=== PATIENT | male | born 1965 | race Caucasian/White ===

== ENCOUNTER 2022-10-01 03:30 | Inpatient (IN) | payer MEDICAID ==
[~2022-10-01] VITALS: Ht 172.7 cm; Wt 71.2 kg
[2022-10-01 03:45] VITALS: BP 164/87
--- NOTE | 2022-10-01 03:45 | NUR ---
CLASS A LINEMANINTERIOR DESIGN FACULTY MEMBER NOTES - PATIENT TRANSFERRED BY [address] [facility] FROM [facility] AT 0338 VIA GURNEY. PATIENT IS AMBULATORY AND INDEPENDENT WITH ADLS. PATIENT IS A/O X2, TO NAME AND TIME, BUT DOES NOT RESPOND TO ANY QUESTION WHEN I WAS INTERVIEWING HIM. HE IS COVERED WITH A BLANKET FROM HEAD TO TOE. PMI TAKEN FROM PREVIOUS MEDICAL RECORD. BREATHING IS EVEN AND NON-LABORED ON ROOM AIR. NOT IN APPARENT DISTRESS. NO C/O PAIN OR DISCOMFORT AT THIS TIME. HAS LEFT HAND IV ACCESS #22G AND SALINE LOCKED. NO S/S OF INFILTRATION NOTED. VS TAKEN, BS 286. ALL BELONGINGS ACCOUNTED FOR. ORIENTED PATIENT TO UNIT AND STAFF. REFUSED TELE MONITOR AT THIS TIME. SAFETY PRECAUTIONS IN PLACE: BED LOCKED AND IN LOW POSITION, SIDE RAILS UP X2, CALL LIGHT WITHIN REACH. WILL CONTINUE PLAN OF CARE.
[2022-10-01 04:00] VITALS: BP 164/87
[2022-10-01] MEDS ORDERED: NITR1OIN2 TD (04:18)
[2022-10-01] MEDS ORDERED: LABE5VIA4 IV (04:18)
[2022-10-01] MEDS ORDERED: GLUC1KIT IJ (04:18)
[2022-10-01] MEDS ORDERED: LORA2VIA6 IJ (04:18)
[2022-10-01] MEDS ORDERED: INSU100V28 (04:18)
[2022-10-01] MEDS ORDERED: HYDR20VI4 IJ (04:18)
[2022-10-01] MEDS ORDERED: FURO100P5 IVP (04:18)
[2022-10-01] MEDS ORDERED: MAG HYDROX/AL HYDROX/SIMETH 30 ML UDC PO PRN (04:30)
[2022-10-01] MEDS ORDERED: ZOLPIDEM TARTRATE 5 MG TABLET PO PRN (04:30)
[2022-10-01] MEDS ORDERED: MAGNESIUM HYDROXIDE 30 ML UDC PO PRN (04:30)
[2022-10-01] MEDS ORDERED: LORAZEPAM INJ 2 MG/ML VIAL IV PRN (04:30)
[2022-10-01] MEDS ORDERED: Z GUARD REMEDY 4 OZ OINT TP PRN (04:30)
[2022-10-01] MEDS ORDERED: DEXTROSE 50%-WATER 50 ML DISP.SYRIN IV PRN (04:30)
[2022-10-01] MEDS ORDERED: hydrALAZINE HCL IV 20 MG VIAL IV PRN (04:30)
[2022-10-01] MEDS ORDERED: ONDANSETRON HCL/PF 4 MG/2 ML VIAL IVP PRN (04:30)
[2022-10-01] MEDS: BLOOD SUGAR DIAGNOSTIC 1 EACH STRIP IN SCH ×4 (06:39→22:13)
[2022-10-01] MEDS: INSULIN REGULAR, HUMAN 100 UNIT/ML 3 ML VIAL SQ PRN ×4 (06:40→22:27)
--- NOTE | 2022-10-01 06:46 | NUR ---
SENIOR PRODUCER CLOSING NOTES - PATIENT SLEEPING IN BED, EASY TO AROUSE. ABLE TO VERBALIZE NEEDS, EASILY AGITATED. NO RESPIRATORY OR CARDIAC DISTRESS NOTED. AFEBRILE. NO S/S OF PAIN OR DISCOMFORT. LEFT HAND IV ACCESS INTACT, PATENT AND FLUSHING. ALL NEEDS ATTENDED AND ANTICIPATED. STILL REFUSING TELE MONITORING. SAFETY PRECAUTIONS MAINTAINED. WILL ENDORSE TO NEXT SHIFT FOR ROB.
--- NOTE | 2022-10-01 08:00 | NUR ---
PATIENT REFUSED TO TAKE VITAL SIGNS AND MRSA SWAB TEST
[2022-10-01] MEDS: THIAMINE HCL 100 MG TABLET PO SCH (08:46)
[2022-10-01] MEDS: FOLIC ACID 1 MG TABLET PO SCH (08:46)
[2022-10-01] MEDS: PANTOPRAZOLE 40 MG VIAL IV SCH (08:46)
[2022-10-01] MEDS ORDERED: INSU100I40 SQ (09:28)
[2022-10-01] MEDS ORDERED: FURO40TA5 PO (09:28)
[2022-10-01] MEDS ORDERED: CLON0.3T PO (09:28)
[2022-10-01] MEDS ORDERED: FOLI0.4T6 PO (09:28)
[2022-10-01] MEDS ORDERED: HUM10VIA3 SQ (09:28)
[2022-10-01] MEDS ORDERED: LISI10TA29 PO (09:28)
[2022-10-01] MEDS ORDERED: CARV25TA2 PO (09:28)
[2022-10-01] MEDS ORDERED: IPRA3AMP23 NEB (09:28)
[2022-10-01] MEDS ORDERED: HYDR-3972 PO (09:28)
[2022-10-01] MEDS ORDERED: SPIR25TA6 PO (09:28)
[2022-10-01] MEDS ORDERED: AMLO-213 PO (09:28)
[2022-10-01] MEDS ORDERED: HYDR-4076 PO (09:28)
[2022-10-01 10:03] LABS: BASOPHILS # (AUTO) 0.1 K/uL (0.0-0.2); BASOPHILS % (AUTO) 1.5 % (0.0-2.0); EOSINOPHILS % (AUTO) 4.3 % (0.0-6.0); HEMATOCRIT 32 % (39-51); HEMOGLOBIN 10.1 g/dL (13.5-17.5); LYMPHOCYTES # (AUTO) 1.3 K/uL (0.8-4.8); LYMPHOCYTES % (AUTO) 18.9 % (20.0-44.0); MEAN CORPUSCULAR HGB CONC 32 g/dl (31.0-36.0); MEAN CORPUSCULAR VOLUME 88 fL (80-96); MONOCYTES # (AUTO) 0.8 K/uL (0.1-1.30); MONOCYTES % (AUTO) 12.2 % (2.0-12.0); NEUTROPHILS # (AUTO) 4.3 K/uL (1.8-8.9); NEUTROPHILS % (AUTO) 63.1 % (43.0-81.0); PLATELET COUNT (AUTO) 210 K/uL (150-450); RED BLOOD CELL COUNT(AUTO) 3.59 MIL/uL (4.5-6.0); WHITE BLOOD COUNT (AUTO) 6.7 K/uL (4.3-11.0)
[2022-10-01 10:48] LABS: CALCIUM, SERUM 8.6 mg/dL (8.5-10.1); CARBON DIOXIDE 25 mmol/L (21-32); CHLORIDE 106 mmol/L (98-107); CREATININE 4.2 mg/dL (0.6-1.3); GLUCOSE 237 mg/dL (74-106); SODIUM SERUM 140 mmol/L (136-145); UREA NITROGEN, BLOOD 37 mg/dL (7-18)
[2022-10-01 10:50] LABS: POTASSIUM 2.7 mmol/L (3.5-5.1)
--- NOTE | 2022-10-01 10:54 | NUR ---
REPORT TO DR GALLARDO RE: K-2.7, ORDERED PO POTASSIUM KDUR [id number] .AND ITS GIVEN TO THE PATIENT.
[2022-10-01] MEDS ORDERED: POTASSIUM CHLORIDE 20 MEQ TAB.PRT.SR PO ONE (11:00)
[2022-10-01 11:11] LABS: ALANINE AMINOTRANSFERASE 7 U/L (12-78); ALBUMIN 2.1 g/dL (3.4-5.0); ALKALINE PHOSPHATASE 132 U/L (46-116); ASPARTATE AMINOTRANSFERASE 22 U/L (15-37); BILIRUBIN,TOTAL 0.4 mg/dL (0.2-1.0); MAGNESIUM 1.9 mg/dL (1.8-2.4); PHOSPHORUS 4.2 mg/dL (2.5-4.9); TOTAL PROTEIN, SERUM 6.7 g/dL (6.4-8.2)
[2022-10-01 11:12] LABS: ALCOHOL, BLOOD < 3 mg/dL (0-0)
[2022-10-01 11:55] LABS: CHOLESTEROL 204 mg/dL (<200); HDL CHOLESTEROL 49 mg/dL (40-60); LDL 126 mg/dL (0-99); THYROID STIMULATING HORMONE 1.428 uIU/mL (0.358-3.74); TRIGLYCERIDES 156 mg/dL (30-150)
--- NOTE | 2022-10-01 12:00 | NUR ---
REFUSED VITAL SIGNS TO BE TAKEN
--- NOTE | 2022-10-01 13:00 | NUR ---
URINE SAMPLE TAKEN FOR URINE SODIUM RANDOM AND OSMOLALITY, INFORMED LABORATORY.
[2022-10-01 15:04] LABS: BILIRUBIN,URINE NEGATIVE (NEGATIVE); COLOR,URINE YELLOW (YELLOW); LEUKOCYTE ESTERASE ,URINE NEGATIVE (NEGATIVE); NITRITE, URINE NEGATIVE (NEGATIVE); PH,URINE 6.5 (5.0-8.0); PROTEIN,URINE 3+ mg/dl (NEGATIVE); UGLUCOSE 2+ mg/dL (NEGATIVE); UROBILINOGEN,URINE 0.2 EU/dL (0.2)
--- NOTE | 2022-10-01 15:47 | NUR ---
REFUSED HIS VITAL SIGNS TO BE TAKEN.
--- NOTE | 2022-10-01 15:48 | NUR ---
SKIN DIVER MICHELLE CAME TO SEE THE PATIENT.
--- NOTE | 2022-10-01 15:56 | NUR ---
"SW Consult: SW consult requested for patient possible homelessness. Patient was brought in due to Renal failure and Hyperglycemia. Patient presents alert and oriented x3 (self,place,situation). Patient appeared to be angry with his situation. Patient was cooperative with this specifications writer while conducting the assessment. He was unable to maintain appropriate eye contact. Patient appeared disheveled and ungroomed. Patient was angry because he lost his cellphone and he was unable to locate his girlfriends number. Patient stated that he lives at a house with his girlfriend but was unable to state the address or location. Patient reported he has no support. SW assessed if he has been homeless or has been dealing with homelessness and he denied stating that he is not homeless. Patient expressed that he has history of mental illness and stated that he has been diagnosed with 7 diagnoses- unable to recall his dx. Patient reported that he is not employed and receives SSI - he did not want to share income. SW assessed for suicidal or homicidal, pt denied. SW assessed any hallucinations visual/auditory, pt denied. SW assessed for substance abuse and drug abuse, pt denied. SW offered pt resources and pt was accepting of shelters and substance abuse referrals. DC PLAN: SW stated that he would want to be discharged to his girlfriends house he was unable to give address. SW gave him longterm resources. He was unable to give girlfriends phone number. Substance Abuse resources provided included: [facility] Substance Abuse Self-Helpline ([facility]) ; [facility]LP [address] [facility]. [place] [phone] ; [facility] [address] [facility] [address] ; [facility] [address] [facility] [place]. [facility] [address] ; [facility] [address] [facility] [address] ; [facility] [address] [facility] [address] ; [facility] [address] [facility] [phone] ; [facility] Substance Abuse Helpline([facility] ; [facility] ; [facility] [place]; [facility] [place]; [facility] [place]; [facility] [place]; [facility]; [facility]; [facility] [place]; [facility], [facility]. [facility]; Alcoholics Anonymous -SFV; Rp-Cqdd-Nzkpwge ; Marijuana Anonymous -[facility]; Narcotics Anonymous www.na.org; Shelters: José Miguel Radha Fregoso Provider: [facility] [place] Address: [address] [place] [address] [place], [address] # of Beds: 47 Population Served: [facility] 6 | [facility] Provider: [facility] Last Address: [facility], [address] # of Beds: 66 Population Served: [facility] MD.Voice [place] Provider: [facility] Serve Address: [address] [facility], [address] # of Beds: 56 Population Served: [facility] [place]ino [place] Provider: SSG/[facility]. [facility] Address: [address] [facility], [address] # of Beds: 49 Population Served: [facility] 8 | [facility] Provider: First to Serve Address: [address] [facility] [place], [address] # of Beds: 37 Population Served: [facility] Hygiene: [facility]: [address] [address] ; [place] [facility] [address] [facility] ; [facility] [address] [place], [place] . Food Resources: [place] [facility] at [facility]- [address]. [place]; Meet Each Need with Dignity ([facility]) [address] [place]; [facility] [address] [facility]; [facility] [address] [facility]. Mental Health resources provided: [facility] [address] [place], [place] [address] ; [facility] [address] [facility] [address], [place], [place] [phone] ; [facility] [address] [place], [place] [phone] ; [facility] [place], [place] [phone] Healthcare Clinics: [facility] [address] [facility], [address] [place]. [place] ; [facility] [address] [facility] [address] [place] [address]; [facility] [place] [address] [facility]. [place] [phone] Counseling--Outpatient [facility] [address] [facility] [address], [address] [place], [place] [phone] (Specializes in in-depth psychotherapy for emotional distress: anxiety, depression, interpersonal conflicts, life transitions, childhood abuse) [facility] [address] [place], [place] [phone] (Assist with solving problem marital difficulties, separation & divorce, aging parents, & grief, chronic & terminal illness) [facility] [address] [place], [place] [phone] (Deal with loss & grief, anxiety, marital difficulties) Homebound/Mental Health Services [address] [facility], [address] [place] [address] (Provide in-home mental services to people who are incapable of leaving their homes) [facility] Senior Service/Resource Center [address] [place] [address] [facility] [address] [place] [address] PSYCHIATRIC OUTPATIENT SERVICES [facility] Partial Hospitalization and Intensive Outpatient Program (Managed Care and [place] Only)[address] [address] [facility] [phone] [facility] Partial Hospitalization and Outpatient [id number] [place], [place] [phone] [facility] Ogn[address] [place], [place] [phone] [facility] Partial Hospitalization and Outpatient [id number] [facility] [place], [phone] "
[2022-10-01 16:01] LABS: BACTERIA,URINE None seen /HPF (None Seen); URINE AMORPHOUS URATE Few /HPF (None Seen); WBC,URINE 0-2 /HPF (0-3)
--- NOTE | 2022-10-01 16:48 | NUR ---
DISCONTINUE IV LINE ON LEFT HAND DUE TO PATIENT WANTED TO LEAVE AGAINST MEDICAL ADVISE, REFUSED TO SIGN AMA FORM, CHARGE NURSE HALINA AWARE.
[2022-10-01 17:32] LABS: CREATININE, URINE 105.8 MG/DL (30.0-125.0)
[2022-10-01] MEDS: ACETAMINOPHEN 325 MG TABLET PO PRN (18:34)
--- NOTE | 2022-10-01 18:57 | NUR ---
PATIENT IS AWAKE IN BED AND RESTING COMFORTABLY, ORIENTEDX3, NO SIGNS OF IN DISTRESS, UNLABORED BREATHING ON ROOM AIR, NO COMPLAINT OF PAIN, SAFETY MEASURES APPLIED, BED IN LOS POSITION LOCKED, SIDE RAILS UPX3, CALL LIGHT WITHIN REACH.
--- NOTE | 2022-10-01 19:36 | NUR ---
MS RN NOTES RECEIVED ON BED SLEEPING,AROUSABLE TO VERBAL STIMULI.HOMELESS,AWAITING SOCIAL SERVICE CONSULT.SALINE LOCK LEFT HAND INTACT AND PATENT.CALL LIGHT IN RERACH,NEEDS ANTICIPATED.
[2022-10-01 20:00] VITALS: BP 150/81
--- NOTE | 2022-10-01 20:00 | NUR ---
MS RN NOTES SALINE LOCK ACCIDENTALLY PULLED OUT.NEW SALINE LOCK INSERTED ON RIGHT HAND #22
--- NOTE | 2022-10-01 20:47 | NUR ---
MS RN NOTES FEELING ANXIOUS,ATIVAN 1MG IV GIVEN SLOWLY VIA IV PUSH,NS FLUSH DONE.WILL MONITOR FOR OVER SEDATION.FALL PRECAUTION OBSERVED
--- NOTE | 2022-10-01 21:39 | NUR ---
PT REFUSED AN ECHOCARDIOGRAM. INFORMED KARTIK JIMENES.
--- NOTE | 2022-10-01 22:27 | NUR ---
MS RN NOTES ACCU-CHECK BLOOD SUGAR CHECK 178MG/DL, REFUSED 3 UNITS ON HUMULIN R PER SLIDING.EXPLAINED RISK AND BENEFITS,STILL REFUSED.WILL CONTINUE TO MONITOR STATUS.
[2022-10-02 04:00] VITALS: BP 148/90
--- NOTE | 2022-10-02 06:42 | NUR ---
MS RN NOTES ON BED SLEEPING,ALWAYS ASKING FOR FOOD WHENEVER HE'S AWAKE,VERBALLY ABUSIVE AND SCREAM TO NURSE AT TIMES.CALL LIGHT IN REACH,NEEDS ATTENDED.ENDORSED TO DAY NURSE IN STABLE CONDITION.
[2022-10-02 07:07] LABS: BASOPHILS # (AUTO) 0.1 K/uL (0.0-0.2); BASOPHILS % (AUTO) 0.8 % (0.0-2.0); EOSINOPHILS % (AUTO) 3.8 % (0.0-6.0); HEMATOCRIT 30 % (39-51); HEMOGLOBIN 9.4 g/dL (13.5-17.5); LYMPHOCYTES # (AUTO) 1.2 K/uL (0.8-4.8); LYMPHOCYTES % (AUTO) 16.8 % (20.0-44.0); MEAN CORPUSCULAR HGB CONC 32 g/dl (31.0-36.0); MEAN CORPUSCULAR VOLUME 89 fL (80-96); MONOCYTES # (AUTO) 0.7 K/uL (0.1-1.30); MONOCYTES % (AUTO) 9.7 % (2.0-12.0); NEUTROPHILS # (AUTO) 4.7 K/uL (1.8-8.9); NEUTROPHILS % (AUTO) 68.9 % (43.0-81.0); PLATELET COUNT (AUTO) 212 K/uL (150-450); RED BLOOD CELL COUNT(AUTO) 3.37 MIL/uL (4.5-6.0); WHITE BLOOD COUNT (AUTO) 6.9 K/uL (4.3-11.0)
[2022-10-02] MEDS: BLOOD SUGAR DIAGNOSTIC 1 EACH STRIP IN SCH (07:30)
--- NOTE | 2022-10-02 07:58 | NUR ---
RN OPENING NOTES PATIENT IS AWAKE IN BED AND RESTING COMFORTABLY, ORIENTEDX3, NO SIGNS OF IN DISTRESS, UNLABORED BREATHING ON ROOM AIR, NO COMPLAINT OF PAIN. PATIENT KEPT ON ASKING WHEN IS HE GOING HOME, REFUSED CHECKING HIS BLOOD SUGAR, STATED "NO NEED FOR THAT, I AM GOING HOME". APPROACHED 3X, STILL REFUSED. EXPLAINED BENEFITS AND RISKS. SAFETY MEASURES APPLIED, BED IN LOW POSITION LOCKED, SIDE RAILS UPX3, CALL LIGHT WITHIN REACH. WILL CONTNIUE TO MONITOR.
[2022-10-02] MEDS: PANTOPRAZOLE 40 MG VIAL IV SCH (08:26)
[2022-10-02] MEDS: THIAMINE HCL 100 MG TABLET PO SCH (08:27)
[2022-10-02] MEDS: FOLIC ACID 1 MG TABLET PO SCH (08:27)
[2022-10-02] MEDS ORDERED: ASPIRIN 81 MG TAB.CHEW PO SCH (09:00)
[2022-10-02] MEDS ORDERED: ATORVASTATIN 40 MG TABLET PO SCH (09:00)
[2022-10-02] MEDS ORDERED: ISOSORBIDE DINITRATE (20MG) 20 MG TABLET PO SCH (09:00)
[2022-10-02] MEDS ORDERED: hydrALAZINE HCL 50 MG TABLET PO SCH (09:00)
[2022-10-02 09:09] LABS: POTASSIUM 4.4 mmol/L (3.5-5.1)
[2022-10-02 09:10] LABS: CALCIUM, SERUM 8.2 mg/dL (8.5-10.1)
[2022-10-02 09:12] LABS: CREATININE 8.2 mg/dL (0.6-1.3)
[2022-10-02] MEDS: ACETAMINOPHEN 325 MG TABLET PO PRN (09:13)
[2022-10-02 09:14] VITALS: BP 180/100
--- NOTE | 2022-10-02 09:20 | NUR ---
PATIENT TALKING LOUD WANTS TO LEAVE HOSPITAL. EXPLAINED NEED TO SIGN AMA .PATIENT REFUSED TO SIGN ANYTHING.
--- NOTE | 2022-10-02 09:21 | NUR ---
[facility],NURSE EXPLAINED NEED TO GO IN ROOM ,PT. STILL TALKING LOUD,SECURITY CALLED.
[2022-10-02 09:22] LABS: MAGNESIUM 1.9 mg/dL (1.8-2.4)
--- NOTE | 2022-10-02 09:22 | NUR ---
SECURITY IN ROOM,ASSESSED PT. COMPLAIN OF FLANK PAIN 03/[address] GALLARDO NOTIFIED UPDATED WITH PATIENT CONDITON AND GAVE ONE TIME ORDER TRAMADOL.SECURITY IN ROOM WITH NURSE.
[2022-10-02] MEDS: INSULIN REGULAR, HUMAN 100 UNIT/ML 3 ML VIAL SQ PRN (09:25)
[2022-10-02] MEDS ORDERED: TRAMADOL HCL 50 MG TABLET PO ONE (09:30)
--- NOTE | 2022-10-02 09:40 | NUR ---
PATIENT WANTS TO LEAVE ,EXPLAINED NEED TO WAIT FOR DOCTOR TO PUT DISCHARGE ORDER.
--- NOTE | 2022-10-02 09:40 | NUR ---
PATIENT SEEN AND EVALUATED BY DR. GALLARDO,PER WILL DC PT. PER CM NET TRAINER GIVE HIM RESOURCES ALREADY AND OK TO DC.
[2022-10-02] MEDS ORDERED: ASPI-1169 PO (10:33)
[2022-10-02] MEDS ORDERED: HYDR-4077 PO (10:33)
[2022-10-02] MEDS ORDERED: ISOS20TA8 PO (10:33)
[2022-10-02] MEDS ORDERED: ATOR40TA PO (10:33)
[2022-10-02] MEDS ORDERED: IV NS 0.9% 1,000 ML IV PRN (12:30)
--- NOTE | 2022-10-02 14:00 | NUR ---
DISCHARGED NOTE PATIENT DISCHARGED TO HOME A/OX4 IN STABLE CONDITION. ON RA, TOLERATING WELL. NO SIGNS OF RESPIRATORY OR CARDIAC DISTRESS. DISCHARGED INSTRUCTION RELAYED TO PATIENT. ALL BELONGINGS ACCOUNTED TO THE PATIENT. ALL DUE MEDS GIVEN, KEPT PATIENT CLEAN. DISCHARGED.
[2022-10-03] MEDS ORDERED: PANTOPRAZOLE 40 MG TABLET.DR PO SCH (07:30)
== END 2022-10-02 13:04 | disposition home or self-care (01) | DRG 469 ==
LOC: TELE-TD 03:30 → TELE1 03:52 → MEDSG1 13:02
PROVIDERS: ADMIT Internal Medicine; ATTEND Internal Medicine
DX: N17.9 Acute kidney failure, unspecified (principal); I21.4 Non-ST elevation (NSTEMI) myocardial infarction; I50.23 Acute on chronic systolic (congestive) heart failure; E11.65 Type 2 diabetes mellitus with hyperglycemia; I13.0 Hypertensive heart and chronic kidney disease with heart failure and stage 1 through stage 4 chronic kidney disease, or unspecified chronic kidney disease; E11.22 Type 2 diabetes mellitus with diabetic chronic kidney disease; N18.9 Chronic kidney disease, unspecified; E87.6 Hypokalemia; Z91.199 Patient's noncompliance with other medical treatment and regimen due to unspecified reason
CPT/HCPCS: 36415; 71045-TC; 76770-TC; 80048-TC; 80053-TC; 80061-TC; 81001; 82570-TC; 82962-TC; 83735-TC; 83880; 84100-TC; 84300-TC; 84443-TC; 84484-TC; 85025-TC; 85610-TC; 97116-TC; C9113; G0378; G0480; J1815; J2060